=== PATIENT | male | born 1990 | race Caucasian/White ===

== ENCOUNTER → 2018-06-27 | Outpatient (CLI) | payer SELFPAY ==
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
== END | disposition home or self-care (01) ==
LOC: RAD 10:54
PROVIDERS: ATTEND Nurse Practitioner Adult Health
DX: S97.82XA Crushing injury of left foot, initial encounter (principal); X58.XXXA Exposure to other specified factors, initial encounter; Y93.89 Activity, other specified; Y92.89 Other specified places as the place of occurrence of the external cause; Y99.8 Other external cause status
CPT/HCPCS: 73610-LT

== ENCOUNTER 2018-10-06 13:34 | Emergency (ER) | payer OTHER, SELFPAY ==
[~2018-10-06] VITALS: Ht 180.3 cm; Wt 90.7 kg
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
[2018-10-06 13:50] VITALS: BP 133/71
[2018-10-06] MEDS ORDERED: FUL-GLO OP ONE (14:03)
[2018-10-06] MEDS ORDERED: TETRACAINE 0.5% EYE DROPS ONE (14:04)
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
[2018-10-06 14:18] VITALS: BP 133/78
== END 2018-10-06 14:41 | disposition home or self-care (01) ==
LOC: ER 13:34
DX: T15.11XA Foreign body in conjunctival sac, right eye, initial encounter (principal); F17.210 Nicotine dependence, cigarettes, uncomplicated; Z90.49 Acquired absence of other specified parts of digestive tract; W22.8XXA Striking against or struck by other objects, initial encounter; Y93.89 Activity, other specified; Y92.89 Other specified places as the place of occurrence of the external cause; Y99.8 Other external cause status
CPT/HCPCS: 99283